=== PATIENT | female | born 1960 | race Caucasian/White ===

== ENCOUNTER 2023-04-28 15:28 | Outpatient (RCR) | payer BC, SELFPAY | END 2023-04-28 23:59 | disposition home or self-care (01) | LOC: RPT 15:28 | PROVIDERS: ATTENDING PHYSICIAN Emergency Medicine | DX: I89.0 Lymphedema, not elsewhere classified (principal); R26.2 Difficulty in walking, not elsewhere classified; Z73.6 Limitation of activities due to disability | CPT/HCPCS: 97110; 97163; 97530 ==

== ENCOUNTER 2023-05-17 16:55 | Outpatient (RCR) | payer BC, SELFPAY | END 2023-05-17 23:59 | disposition home or self-care (01) | LOC: RPT 16:55 | PROVIDERS: ATTENDING PHYSICIAN Emergency Medicine | DX: I89.0 Lymphedema, not elsewhere classified (principal); R26.2 Difficulty in walking, not elsewhere classified; Z73.6 Limitation of activities due to disability; M19.072 Primary osteoarthritis, left ankle and foot; M19.071 Primary osteoarthritis, right ankle and foot | CPT/HCPCS: 97110; 97140; 97530 ==

== ENCOUNTER 2023-06-11 13:55 | Outpatient (RCR) | payer BC, SELFPAY | END 2023-06-11 23:59 | disposition home or self-care (01) | LOC: RPT 13:55 | PROVIDERS: ATTENDING PHYSICIAN Emergency Medicine | DX: I89.0 Lymphedema, not elsewhere classified (principal); R26.2 Difficulty in walking, not elsewhere classified; Z73.6 Limitation of activities due to disability | CPT/HCPCS: 97110; 97530; 97760 ==